=== PATIENT | female | born 1960 | race Caucasian/White ===

== ENCOUNTER 2017-09-08 12:45 | Emergency (ER) | payer MEDICAID, OTHER ==
[2017-09-08 12:55] VITALS: BP 133/53; PULSE 73; RESP 17; TEMP 97; O2SAT 98
--- NOTE | 2017-09-08 13:40 | ED PDOC ---
HPI: Back Time Seen by Provider: 09/08/17 13:12 Chief Complaint (Nursing): Back Pain Chief Complaint (Provider): Back Pain History Per: Patient History/Exam Limitations: no limitations Onset/Duration Of Symptoms: Days (x 2 weeks) Current Symptoms Are (Timing): Still Present Previous Symptoms: Back Pain, Prior Surgery Additional Complaint(s): Patient reports low back pain, onset 2 weeks ago. Of note, patient had back surgery in [place] in April for a workers comp case secondary to a work- related injury. Was discharged in May from the care of the surgeon and since then has not been able to follow up with the doctor who performed her surgery, since the workman's comp case is closed. Otherwise: (-) abdominal pain , (-) urinary symptoms, (-) paresthesias, (-) weakness, (-) acute bowel or bladder dysfunction, (-) fever, (-) IVDU. PMD: None Past Medical History Reviewed: Historical Data, Nursing Documentation, Vital Signs Vital Signs: Last Vital Signs Temp 97 F L 09/08/17 12:52 Pulse 73 09/08/17 12:52 Resp 17 09/08/17 12:52 BP 133/53 L 09/08/17 12:52 Pulse Ox 98 09/08/17 12:52 - Medical History PMH: Back Problems - Surgical History Surgical History: Back Surgery - Family History Family History: States: Unknown Family Hx - Home Medications Home Medications: Ambulatory Orders Medication Instructions Recorded Ibuprofen [Motrin] 600 mg PO TID 7 Days tab 09/21/15 Cyclobenzaprine [Cyclobenzaprine 10 mg PO TID PRN #15 tab 09/08/17 HCl] Meloxicam [Mobic] 15 mg PO DAILY #30 tab 09/08/17 traMADol [Ultram] 50 mg PO TID PRN #15 tab 09/08/17 - Allergies Allergies/Adverse Reactions: Allergies Allergy/AdvReac Type Severity Reaction Status Date / Time No Known Allergies Allergy Verified 09/08/17 12:55 Review of Systems ROS Statement: Except As Marked, All Systems Reviewed And Found Negative Constitutional: Negative for: Fever, Chills Genitourinary Female: Negative for: Incontinence Musculoskeletal: Positive for: Back Pain Neurological: Negative for: Weakness, Numbness, Other (paresthesia) Physical Exam - Reviewed Nursing Documentation Reviewed: Yes Vital Signs Reviewed: Yes - Physical Exam Comments: GENERAL APPEARANCE: Patient is awake, alert, oriented x 3, in mild painful distress. SKIN: Warm, dry; (-) cyanosis. EYES: (-) conjunctival pallor. ENMT: Mucous membranes moist. NECK: (-) tenderness, (-) stiffness, (-) lymphadenopathy. CHEST AND RESPIRATORY: (-) rales, (-) rhonchi, (-) wheezes; breath sounds equal bilaterally. HEART AND CARDIOVASCULAR: (-) irregularity; (-) murmur, (-) gallop. ABDOMEN AND GI: Soft; (-) tenderness; (-) palpable mass. BACK: (+) vertical surgical scar noted to lumbar spine. (+) Mild tenderness to the R paralumbar. Straight leg raising (+) at 30 degrees on the right; (-) left. EXTREMITIES: (-) deformity. Distal pulses good bilaterally. (+) Able to ambulate around the ER NEURO AND PSYCH: Mental status as above. Intact sensation bilaterally; normal strength in extension of the knees, plantar and dorsiflexion of the toes. DTRs symmetric. - ECG O2 Sat by Pulse Oximetry: 98 (RA) Pulse Ox Interpretation: Normal Medical Decision Making Medical Decision Making: Clinical Impression: Back Pain Time: 13:41 Initial Plan: * Trial of 10 mg Flexeril and 60 mg Toradol [place] RX reviewed, and no records found for this patient. Patient advised she will need to follow up with the surgeon or a marine cargo specialist who did her surgery, regarding her back pain for further evaluation or the follow up with referral provided. Counseled patient regarding pain policy; ER will provide pain medication at this time but that she needs to follow up with her doctor for ongoing pain management. Advised to take medication as prescribed. Return to the emergency room at any time for any new or worsening symptoms. Patient states she fully agrees with and understands discharge instructions. States that she agrees with the plan and disposition. Verbalized and repeated discharge instructions and plan. I have given the patient opportunity to ask any additional questions. Scribe Attestation: Documented by Gisele Goddard, acting as a scribe for Meeta Albarado PA-C Provider Scribe Attestation: All medical record entries made by the Scribe were at my direction and personally dictated by me. I have reviewed the chart and agree that the record accurately reflects my personal performance of the history, physical exam, medical decision making, and the department course for this patient. I have also personally directed, reviewed, and agree with the discharge instructions and disposition. Disposition - Clinical Impression Clinical Impression: Low back pain - Patient ED Disposition Is Patient to be Admitted: No Counseled Patient/Family Regarding: Diagnosis, Need For Followup, Rx Given - Disposition Referrals: Neymar Singer III, MD [Staff Provider] - Disposition: Routine/Home Disposition Time: 13:46 Condition: STABLE Additional Instructions: Thank you for letting us take care of you today. You were treated for low back pain. The emergency medical care you received today was directed at your acute symptoms. If you were prescribed any medication, please fill it and take as directed. It may take several days for your symptoms to resolve. Return to the Emergency Department if your symptoms worsen, do not improve, or if you have any other problems. Please contact the spine surgeon who previously did your surgery and follow up with him/her in 2 days for re-evaluation and follow up / or call one of the physicians/clinics you have been referred to that are listed on the Patient Visit Information form that is included in your discharge packet. Bring any paperwork you were given at discharge with you along with any medications you are taking to your follow up visit. Our treatment cannot replace ongoing medical care by a primary care provider (PCP) outside of the emergency department. Thank you for allowing the [facility] team to be part of your care today. Prescriptions: Cyclobenzaprine [Cyclobenzaprine HCl] 10 mg PO TID PRN #15 tab PRN Reason: Muscle Spasm Meloxicam [Mobic] 15 mg PO DAILY #30 tab traMADol [Ultram] 50 mg PO TID PRN #15 tab PRN Reason: Pain, Moderate (4-7) Instructions: Low Back Pain in Adults Forms: [place] (Polish), [facility] ED School/Work Excuse Print Language: LATVIAN
== END 2017-09-08 14:15 | disposition home or self-care (01) ==
LOC: H.ER 12:45
DX: M54.5 Low back pain (principal)
CPT/HCPCS: 96372; 99282; J1885